=== PATIENT | male | born 1995 | race Caucasian/White ===

== ENCOUNTER 2020-02-18 01:24 | Emergency (ER) | payer BC, OTHER ==
[~2020-02-18] VITALS: Ht 180 cm; Wt 86.3 kg
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
[2020-02-18 03:34] VITALS: BP 144/99
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
== END 2020-02-18 03:25 | disposition home or self-care (01) ==
LOC: ER 01:28
DX: S20.212A Contusion of left front wall of thorax, initial encounter (principal); W50.0XXA Accidental hit or strike by another person, initial encounter; Y93.71 Activity, boxing
CPT/HCPCS: 71046; 71100